=== PATIENT | male | born 1990 | race African-American/Black ===

== ENCOUNTER 2017-04-12 18:47 | Emergency (ER) | payer SELFPAY ==
[2017-04-12 19:16] VITALS: BP 132/78
[2017-04-12] MEDS ORDERED: PENICILLIN V POTASSIUM 500 MG TABLET PO ONE (20:57)
[2017-04-12] MEDS ORDERED: IBUPROFEN 800 MG TABLET PO ONE (20:57)
--- NOTE | 2017-04-12 20:58 | ER Document Report ---
HPI - HPI Pain Level: 4 Context: Patient is a 26-year-old male presents with left upper jaw pain for the past 2 days. Denies any fever, chills, difficulty swallowing, dyspnea, odor, foul drainage. Been able to tolerate both liquids and solids. Patient has delay in difficulty communicating - DERM Skin Color: Normal Past Medical History - Social History Smoking Status: Unknown if Ever Smoked Family History: Reviewed & Not Pertinent Renal/ Medical History: Denies: Hx Peritoneal Dialysis - Immunizations Hx Diphtheria, Pertussis, Tetanus Vaccination: No Vertical Provider Document - CONSTITUTIONAL Agree With Documented VS: Yes Exam Limitations: No Limitations General Appearance: WD/WN, No Apparent Distress, Other - Communication delay - HEENT HEENT: Atraumatic, Normal ENT Exam, Normocephalic Mouth Diagram: 1 - Pain to palpation with gingival inflammation and dental caries. No evidence of abscess Notes: Uvula midline. Airway patent. No evidence of tonsillar enlargement, peritonsillar abscess, retropharyngeal abscess. - NECK Neck: Normal Inspection, Other - No evidence of Eldon's angina. negative: Lymphadenopathy-Left, Lymphadenopathy-Right - RESPIRATORY Respiratory: Breath Sounds Normal, No Respiratory Distress, Chest Non-Tender O2 Sat by Pulse Oximetry: 99 - CARDIOVASCULAR Cardiovascular: Regular Rate, Regular Rhythm, No Murmur Pulses: Normal: Radial Course - Re-evaluation Re-evalutation: 04/13/17 07:02 Hemodynamic stable, no acute distress and afebrile. Patient prescribed penicillin and instructions to follow-up with dentist. Given strict return precautions. - Vital Signs Vital signs: Temp Pulse Resp BP Pulse Ox 98.4 F 97 16 132/78 H 99 04/12/17 19:12 04/12/17 19:12 04/12/17 19:12 04/12/17 19:12 04/12/17 19:12 Discharge - Discharge Clinical Impression: Tooth ache Condition: Good Disposition: HOME, SELF-CARE Instructions: [facility], Penicillin V K ([facility]), Toothache ([facility]), Use of Ecox-Xhe-Jbzvexw Ibuprofen ([facility]) Additional Instructions: [facility] [address] [place], [place] mornings, by appointment [facility] [address] [place] [address] [facility] [address] [facility] [address] [facility] [address] [email or web address] [address] [place] [address] Sunday- 8:00am to 5:00 pm Will see patients from other [facility]. Charges based on income and family size and accepts Medicare, Medicaid, and Insurances Will pull molars [facility] Student [facility] [id number] Hours of Operation 8:00 am - 4:30 pm weekdays The following dental offices accept Medicaid: [facility] Dr. Bowen Dr. Degroot Dr. Tim Dr. Hammonds Bryon Johnson [place], and [place] oral surgery Dr. Haq ([place]) Dr. Lopez ([place]) [facility] Drs. Werner and Erwin ([place]) Dr. Garcia ([place]) [facility] Dr. Allen ([place]) Drs. Napoles and ([place]) Medicaid Care Line Prescriptions: Penicillin V Potassium [Penicillin Vk 500 mg Tablet] 500 mg PO BID #20 tablet
== END 2017-04-12 21:01 | disposition home or self-care (01) ==
LOC: ER 18:47
DX: K08.9 Disorder of teeth and supporting structures, unspecified (principal); R68.84 Jaw pain
CPT/HCPCS: 99283

== ENCOUNTER 2017-05-18 11:45 | Emergency (ER) | payer SELFPAY ==
[2017-05-18 12:01] VITALS: BP 116/66
[2017-05-18 12:14] LABS: ABSOLUTE LYMPHOCYTES (AUTO) 1.5 10^3/uL (0.5-4.7); ABSOLUTE MONOCYTES (AUTO) 0.6 10^3/uL (0.1-1.4); ABSOLUTE NEUT (AUTO) 4.8 10^3/uL (1.7-8.2); BASOPHILS % (AUTO) 0.5 % (0-2); EOSINOPHILS % (AUTO) 0.2 % (0-6); HEMATOCRIT 37.9 % (37.9-51.0); HEMOGLOBIN 12.8 g/dL (13.5-17.0); HGB HCT DIFFERENCE 0.5; MEAN CORPUSCULAR HEMOGLOBIN 29.3 pg (27.0-33.4); MEAN CORPUSCULAR HGB CONC 33.7 g/dL (32.0-36.0); MEAN CORPUSCULAR VOLUME 87 fl (80-97); MONOCYTES % (AUTO) 8.2 % (3-13); RED BLOOD COUNT 4.35 10^6/uL (4.35-5.55); RED CELL DISTRIBUTION WIDTH 13.6 % (11.5-14.0); SEGMENTED NEUTROPHILS % (AUTO) 69.1 % (42-78)
[2017-05-18 12:27] LABS: ALANINE AMINOTRANSFERASE 34 U/L (21-72); ALBUMIN 4.2 g/dL (3.5-5.0); ALCOHOL 153 mg/dL (NONE DETECTED); ALKALINE PHOSPHATASE 67 U/L (38-126); ANION GAP 15 (5-19); ASPARTATE AMINO TRANSFERASE 38 U/L (17-59); BILIRUBIN,DIRECT 0.3 mg/dL (0.0-0.4); BILIRUBIN,TOTAL 0.4 mg/dL (0.2-1.3); BLOOD UREA NITROGEN 12 mg/dL (7-20); CALCIUM 8.4 mg/dL (8.4-10.2); CARBON DIOXIDE 20 mmol/L (22-30); CHLORIDE 106 mmol/L (98-107); GLUCOSE 84 mg/dL (75-110); POTASSIUM 3.7 mmol/L (3.6-5.0); SODIUM 141.1 mmol/L (137-145)
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
[2017-05-18 14:00] LABS: APPEARANCE,URINE CLEAR; BILIRUBIN,URINE NEGATIVE (NEGATIVE); GLUCOSE, URINE NEGATIVE (NEGATIVE); KETONES,URINE TRACE mg/dL (NEGATIVE); LEUKOCYTE ESTERASE,URINE NEGATIVE (NEGATIVE); NITRITE,URINE NEGATIVE (NEGATIVE); PROTEIN,URINE NEGATIVE (NEGATIVE); URINE SPECIFIC GRAVITY 1.012; UROBILINOGEN,URINE NEGATIVE mg/dL (<2.0)
[2017-05-18 14:20] LABS: URINE BARBITURATES SCREEN NEGATIVE; URINE METHADONE SCREEN NEGATIVE; URINE OPIATES LOW NEGATIVE; URINE PHENCYCLIDINE SCREEN NEGATIVE
== END 2017-05-18 14:45 | disposition home or self-care (01) ==
LOC: ER 11:45
DX: R41.82 Altered mental status, unspecified (principal); F14.10 Cocaine abuse, uncomplicated; F10.920 Alcohol use, unspecified with intoxication, uncomplicated; Z87.891 Personal history of nicotine dependence
CPT/HCPCS: 36415; 80053; 80307; 81001; 85025; 99284

== ENCOUNTER 2018-04-08 00:15 | Emergency (ER) | payer SELFPAY ==
[2018-04-08 01:17] LABS: ABSOLUTE BASOPHILS # (AUTO) 0.1 10^3/uL (0.0-0.2); ABSOLUTE EOSINOPHILS # (AUTO) 0.1 10^3/uL (0.0-0.6); ABSOLUTE LYMPHOCYTES (AUTO) 1.8 10^3/uL (0.5-4.7); ABSOLUTE MONOCYTES (AUTO) 0.5 10^3/uL (0.1-1.4); ABSOLUTE NEUT (AUTO) 1.9 10^3/uL (1.7-8.2); BASOPHILS % (AUTO) 1.2 % (0-2); EOSINOPHILS % (AUTO) 2.9 % (0-6); HEMATOCRIT 41.5 % (37.9-51.0); LYMPHOCYTES % (AUTO) 40.9 % (13-45); MEAN CORPUSCULAR HEMOGLOBIN 29.5 pg (27.0-33.4); MEAN CORPUSCULAR HGB CONC 33.8 g/dL (32.0-36.0); MEAN CORPUSCULAR VOLUME 87 fl (80-97); MONOCYTES % (AUTO) 11.5 % (3-13); PLATELET COUNT 217 10^3/uL (150-450); RED BLOOD COUNT 4.75 10^6/uL (4.35-5.55); RED CELL DISTRIBUTION WIDTH 13.7 % (11.5-14.0); SEGMENTED NEUTROPHILS % (AUTO) 43.5 % (42-78); TOTAL CELLS COUNTED % (AUTO) 100 %; WHITE BLOOD COUNT 4.4 10^3/uL (4.0-10.5)
[2018-04-08 01:21] LABS: ALANINE AMINOTRANSFERASE 33 U/L (21-72); ALBUMIN 4.2 g/dL (3.5-5.0); ALKALINE PHOSPHATASE 60 U/L (38-126); ANION GAP 11 (5-19); ASPARTATE AMINO TRANSFERASE 32 U/L (17-59); BILIRUBIN,DIRECT 0.3 mg/dL (0.0-0.4); BILIRUBIN,TOTAL 0.4 mg/dL (0.2-1.3); BLOOD UREA NITROGEN 14 mg/dL (7-20); CARBON DIOXIDE 26 mmol/L (22-30); CHLORIDE 109 mmol/L (98-107); GLUCOSE 167 mg/dL (75-110); POTASSIUM 4.1 mmol/L (3.6-5.0); SALICYLATE 7.5 mg/dL (2.0-20.0); SODIUM 145.5 mmol/L (137-145); TOTAL PROTEIN 6.9 g/dL (6.3-8.2)
[2018-04-08 01:26] LABS: ACETAMINOPHEN < 10 ug/mL (10-30); ALCOHOL < 10 mg/dL (NONE DETECTED)
--- NOTE | 2018-04-08 01:27 | ER Document Report ---
ED General - General Chief Complaint: Other Stated Complaint: BLOOD SUGAR PROBLEMS Time Seen by Provider: 04/08/18 00:25 Cannot obtain history due to: Mentally challenged Notes: Patient is a 27-year-old male who presents by EMS after apparently calling 911 from his cell phone. The patient is severely cognitively impaired, unable to tell me why he called 911 or if he has any acute medical concerns. He is asking for something to eat. Review of previous medical records demonstrates a history of similar previous presentations often the context of drug abuse. He does have a speech impairment and cognitive delay at baseline based on prior documentation. TRAVEL OUTSIDE OF THE [place] IN LAST 30 DAYS: No - Related Data Allergies/Adverse Reactions: No Known Allergies Allergy (Verified 04/08/18 00:50) Past Medical History - General Information source: Emergency Med Personnel, [facility] Records Cannot obtain history due to: Mentally challenged - Social History Smoking Status: Unknown if Ever Smoked Family History: Reviewed & Not Pertinent Patient has suicidal ideation: No Patient has homicidal ideation: No Renal/ Medical History: Denies: Hx Peritoneal Dialysis - Immunizations Hx Diphtheria, Pertussis, Tetanus Vaccination: No Review of Systems - Review of Systems -: Yes ROS unobtainable due to patient's medical condition Physical Exam - Vital signs Vitals: Temp Pulse Resp BP Pulse Ox 98.3 F 67 20 111/68 100 04/08/18 00:21 04/08/18 00:21 04/08/18 00:21 04/08/18 00:21 04/08/18 00:21 Interpretation: Normal Notes: PHYSICAL EXAMINATION: GENERAL: Well-appearing, well-nourished and in no acute distress. HEAD: Atraumatic, normocephalic. EYES: Pupils equal round and reactive to light, extraocular movements intact, sclera anicteric, conjunctiva are normal. ENT: nares patent, oropharynx clear without exudates. Moist mucous membranes. NECK: Normal range of motion, supple without lymphadenopathy LUNGS: Breath sounds clear to auscultation bilaterally and equal. No wheezes rales or rhonchi. HEART: Regular rate and rhythm without murmurs ABDOMEN: Soft, nontender, normoactive bowel sounds. No guarding, no rebound. No masses appreciated. EXTREMITIES: Normal range of motion, no pitting or edema. No cyanosis. NEUROLOGICAL: No focal neurological deficits. Moves all extremities spontaneously and on command. PSYCH: Significant cognitive delay. Pleasant on contact SKIN: Warm, Dry, normal turgor, no rashes or lesions noted. Course - Re-evaluation Re-evalutation: 04/08/18 01:26 Patient presents after apparently having called 911 but is unable to explain to me why he did so. He is otherwise apparently cognitively impaired which based on chart review is baseline. He does smell of alcohol. Prior charts document that he normally lives with his mother but often wanders the streets. Right now the patient does not seem to have the ability to be safely discharged but also does not appear to have any acute medical emergency. He is asking for something to eat. We will provide this. Will obtain standard psychiatric screening laboratories and try to get ahold of his mother. - Vital Signs Vital signs: Temp Pulse Resp BP Pulse Ox 98.3 F 67 20 111/68 100 04/08/18 00:21 04/08/18 00:21 04/08/18 00:21 04/08/18 00:21 04/08/18 00:21 - Laboratory Result Diagrams: 04/08/18 01:09 04/08/18 00:30 Laboratory results interpreted by me: 04/08/18 04/08/18 00:24 00:30 Sodium 145.5 H Chloride 109 H Glucose 167 H POC Glucose 164 H Acetaminophen < 10 L Discharge - Discharge Clinical Impression: Cognitive impairment Condition: Stable
[2018-04-08 03:56] LABS: APPEARANCE,URINE SLIGHTLY-CLOUDY; BILIRUBIN,URINE NEGATIVE (NEGATIVE); COLOR,URINE AMBER; GLUCOSE, URINE NEGATIVE (NEGATIVE); KETONES,URINE NEGATIVE (NEGATIVE); LEUKOCYTE ESTERASE,URINE NEGATIVE (NEGATIVE); NITRITE,URINE NEGATIVE (NEGATIVE); PROTEIN,URINE 30 mg/dL (NEGATIVE); URINE SPECIFIC GRAVITY 1.028
[2018-04-08 04:12] LABS: URINE AMPHETAMINES SCREEN NEGATIVE; URINE BARBITURATES SCREEN NEGATIVE; URINE BENZODIAZEPINES SCREEN NEGATIVE; URINE COCAINE SCREEN UNCONFIRMED POSITIVE; URINE MARIJUANA (THC) SCREEN UNCONFIRMED POSITIVE; URINE METHADONE SCREEN NEGATIVE; URINE PHENCYCLIDINE SCREEN NEGATIVE
--- NOTE | 2018-04-08 09:37 | ER Document Report ---
Doctor's Note Notes: 04/08/18 09:35 This is a follow-up evaluation: Primary diagnosis-substance abuse, cognitive function impaired, homeless. Patient is here for the above reason, has been doing well, currently has --- complaint. On examination-vitals reviewed in the chart. General exam: Alert oriented 3 not in any acute distress. Unhygienic HEENT: Normocephalic atraumatic pupils are equal reactive to light, Lungs-clear breath sounds no rales or wheezing. Cardiovascular system: Normal S1-S2 no murmurs. Gastrointestinal: Normal breath sounds, no organomegaly positive bowel sounds. Genitourinary: Skin: Could not exam Psychiatric: Diagnoses: Homeless, substance abuse Plan: Continue on the current plan
--- NOTE | 2018-04-08 11:26 | PSYCHOLOGICAL NOTE ---
Psych Note - Psych Note Psych Note: Reason for consult: AMS, history and current of polysubstance use Contact permissions: None but patient said could contact mother for history Patient is a 27 year old male who presented to the ED last evening via EMS and a psychiatric consult was ordered due to AMS. Patient stated he was in the ED because he called the Public Safety building saying he needed big assistance. When asked assistance with what or how the hospital could help him he said A Big Goodie Bag of food and rehabilitation for Cocaine. His UDS was positive for Cocaine and Cannabis. He stated his last use of Cocaine was yesterday at 1700, he uses it every few days and thinks it could be a problem. He denied being prescribed any medications except penicillin for tooth and gum issues. Observed patients teeth were rotted. Patient was alert and oriented to person, place, time and situation. Mood was euthymic with congruent affect. Note eyes were bloodshot and glossy. He denied current SI/HI and made no statements or gestures while in the ED. He did not appear to be responding to internal stimuli as evidenced by fair eye contact, staying on topic and answering questions appropriately. Thought processes were linear. Conversational speech was soft in tone, somewhat slurred and mumbled however it is felt this is normal for patient. Intellectual abilities are estimated to be below average. Insight, judgment and impulse control were fair as evidenced by trying to get basic needs met (food). Chart review indicated patient had been seen in the past (04/24/11, 05/18/17) for similar etiology. UDS were positive for Cocaine and Cannabis as well so likely ongoing moderate to severe use. Contacted patients mother/emergency contact, Rere Machadokinson ([phone] listed as home number was disconnected but [phone] listed as cell was in working order). She identified patient does not reside with her but does come around to shower and what not. She reported the last time she saw him was 2 weeks ago. She stated was diagnosed with Low IQ and ADHD by a professional Psychologist off [facility] by Christina (right at the light) which is how he was able to obtain disability. She reported he was prescribed Ritalin in the past. She stated patients chopping machine operator (Dr. Bella and Dr. Bee) prescribed the Ritalin. She stated she could not provide any transportation for patient because she no longer has a car. Contacted [facility] and made referral to Priscila at the call center who sent horizontal drill operatorcall center analyst Fiorella on site. Diagnosis: Polysubstaance use (current and by history) 304.30 (F12.20) Cannabis Use Disorder, Severe 304.20 (F14.20) Cannabis Use Disorder, Severe 319 (F79) Unspecified Intellectual Disability (Intellectual Developmental Disorder) by history per mother 314.01 (F90.9) Unspecified Attention Deficit Hyperactivity Disorder by history per mother Impression/Plan: Patient is cleared from acute psychiatric services. Linked to [facility] for voluntary Cocaine detox. Per Fiorella [facility] no available detox beds today. Patient then refused to allow [facility] to stay involved and continue seeking placement. He denied SI/HI and these were not presenting concerns. He has a history of polysubstance (per chart review, as well current UDS positive for Cocaine and Cannabis) and low IQ (per mother). Consulted with Dr. Daley regarding the management and care of patient. ED Physician in agreement with recommendations.
[2018-04-08 12:13] VITALS: BP 94/81
--- NOTE | 2018-04-08 16:38 | EKG REPORT ---
SEVERITY:- ABNORMAL ECG - SINUS RHYTHM ST ELEVATION SUGGESTS PERICARDITIS VS EARLY REPOLARIZATION CHANGES : Confirmed by: Alvin Nam 08-Apr-2018 16:36:54
== END 2018-04-08 12:20 | disposition home or self-care (01) ==
LOC: ER 00:15
DX: G31.84 Mild cognitive impairment of uncertain or unknown etiology (principal); F14.90 Cocaine use, unspecified, uncomplicated; F12.10 Cannabis abuse, uncomplicated
CPT/HCPCS: 36415; 80053; 80307; 81001; 82962; 85025; 93005; 93010; 99285

== ENCOUNTER 2018-05-02 01:57 | Emergency (ER) | payer SELFPAY ==
--- NOTE | 2018-05-02 03:04 | ER Document Report ---
ED General - General Chief Complaint: Chest Pain Stated Complaint: CHEST PAIN Time Seen by Provider: 05/02/18 02:50 Mode of Arrival: Medic Information source: Patient, Emergency Med Personnel, [facility] Records Cannot obtain history due to: Intoxicated Notes: 27 yr old male presents by ems for chest pain. on arrival pt noted to deny chest pain, admits he is homeless and wants snacks. pt denies any other concerns. TRAVEL OUTSIDE OF THE [place] IN LAST 30 DAYS: No - HPI Onset: Just prior to arrival Onset/Duration: Sudden Quality of pain: No pain Severity: None Pain Level: Denies Associated symptoms: Chest pain Exacerbated by: Denies Relieved by: Denies Similar symptoms previously: Yes Recently seen / treated by doctor: Yes - Related Data Allergies/Adverse Reactions: No Known Allergies Allergy (Verified 04/08/18 00:50) Past Medical History - Social History Smoking Status: Current Every Day Smoker Cigarette use (# per day): No Chew tobacco use (# tins/day): No Smoking Education Provided: No Family History: Reviewed & Not Pertinent Patient has suicidal ideation: - unable to obtain Patient has homicidal ideation: - unable to obtain Renal/ Medical History: Comment Only: Hx Peritoneal Dialysis - unable to obtain - Immunizations Hx Diphtheria, Pertussis, Tetanus Vaccination: No Review of Systems - Review of Systems Notes: REVIEW OF SYSTEMS: CONSTITUTIONAL : Denies fever, chills, or sweats. Denies recent illness. EENT: Denies eye, ear, throat, or mouth pain or symptoms. Denies nasal or sinus congestion or discharge. Denies throat, tongue, or mouth swelling or difficulty swallowing. CARDIOVASCULAR: admittd to chest pain . RESPIRATORY: Denies cough, cold, or chest congestion. Denies shortness of breath, difficulty breathing, or wheezing. GASTROINTESTINAL: Denies abdominal pain or distention. Denies nausea, vomiting , or diarrhea. Denies blood in vomitus, stools, or per rectum. Denies black, tarry stools. Denies constipation. GENITOURINARY: Denies difficulty urinating, painful urination, burning, frequency, blood in urine, or discharge. MUSCULOSKELETAL: Denies back or neck pain or stiffness. Denies joint pain or swelling. SKIN: Denies rash, lesions or sores. HEMATOLOGIC : Denies easy bruising or bleeding. LYMPHATIC: Denies swollen, enlarged glands. NEUROLOGICAL: Denies confusion or altered mental status. Denies passing out or loss of consciousness. Denies dizziness or lightheadedness. Denies headache. Denies weakness or paralysis or loss of use of either side. Denies problems with gait or speech. Denies sensory loss, numbness, or tingling. Denies seizures. PSYCHIATRIC: Denies anxiety or stress. Denies depression, suicidal ideation, or homicidal ideation. ALL OTHER SYSTEMS REVIEWED AND NEGATIVE. Dictation was performed using [employer] voice recognition software PHYSICAL EXAMINATION: GENERAL: Well-appearing, well-nourished and in no acute distress. HEAD: Atraumatic, normocephalic. EYES: pupils bilaterally injected ENT: Nares patent, oropharynx clear without exudates. Moist mucous membranes. NECK: Normal range of motion, supple without lymphadenopathy LUNGS: Breath sounds clear to auscultation bilaterally and equal. No wheezes rales or rhonchi. HEART: Regular rate and rhythm without murmurs ABDOMEN: Soft, nontender, nondistended abdomen. No guarding, no rebound. No masses appreciated. Musculoskeletal: Normal range of motion, no pitting or edema. No cyanosis. NEUROLOGICAL:mumbled speech PSYCH: bizarre affect SKIN: Warm, Dry, normal turgor, no rashes or lesions noted. Course - Re-evaluation Re-evalutation: 05/02/18 03:21 Patients presentation was initially for chest pain, but it appears that it is more substance abuse related. Discharge - Discharge Clinical Impression: Substance abuse Condition: Stable Disposition: PSYCH HOSP/UNIT
--- NOTE | 2018-05-02 03:22 | RADIOLOGY REPORT (SQ) ---
EXAM DESCRIPTION: XR CHEST 2 VIEWS COMPLETED DATE/TME: 05/02/2018 02:58 CLINICAL HISTORY: 27 years Male, chest pain COMPARISON: None. FINDINGS: Increased lung volume, clear parenchyma, normal cardiac silhouette, and intact bony thorax. IMPRESSION: No acute cardiopulmonary findings.
[2018-05-02 03:33] LABS: ABSOLUTE BASOPHILS # (AUTO) 0.1 10^3/uL (0.0-0.2); ABSOLUTE EOSINOPHILS # (AUTO) 0.1 10^3/uL (0.0-0.6); ABSOLUTE LYMPHOCYTES (AUTO) 1.8 10^3/uL (0.5-4.7); ABSOLUTE MONOCYTES (AUTO) 0.4 10^3/uL (0.1-1.4); ABSOLUTE NEUT (AUTO) 2.9 10^3/uL (1.7-8.2); BASOPHILS % (AUTO) 1.1 % (0-2); EOSINOPHILS % (AUTO) 1.2 % (0-6); HEMATOCRIT 38.4 % (37.9-51.0); HEMOGLOBIN 12.9 g/dL (13.5-17.0); LYMPHOCYTES % (AUTO) 34.8 % (13-45); MEAN CORPUSCULAR HEMOGLOBIN 29.1 pg (27.0-33.4); MEAN CORPUSCULAR HGB CONC 33.6 g/dL (32.0-36.0); MEAN CORPUSCULAR VOLUME 87 fl (80-97); MONOCYTES % (AUTO) 7.7 % (3-13); PLATELET COUNT 204 10^3/uL (150-450); RED BLOOD COUNT 4.43 10^6/uL (4.35-5.55); RED CELL DISTRIBUTION WIDTH 13.6 % (11.5-14.0); SEGMENTED NEUTROPHILS % (AUTO) 55.2 % (42-78); TOTAL CELLS COUNTED % (AUTO) 100 %; WHITE BLOOD COUNT 5.3 10^3/uL (4.0-10.5)
[2018-05-02 03:36] LABS: ACETAMINOPHEN < 10 ug/mL (10-30); ALANINE AMINOTRANSFERASE 20 U/L (21-72); ALBUMIN 3.8 g/dL (3.5-5.0); ALCOHOL 64 mg/dL (NONE DETECTED); ALKALINE PHOSPHATASE 47 U/L (38-126); ANION GAP 11 (5-19); ASPARTATE AMINO TRANSFERASE 21 U/L (17-59); BILIRUBIN,DIRECT 0.3 mg/dL (0.0-0.4); BILIRUBIN,TOTAL 0.3 mg/dL (0.2-1.3); BLOOD UREA NITROGEN 14 mg/dL (7-20); CALCIUM 9.2 mg/dL (8.4-10.2); CARBON DIOXIDE 27 mmol/L (22-30); CHLORIDE 106 mmol/L (98-107); GLUCOSE 83 mg/dL (75-110); SALICYLATE < 1.0 mg/dL (2.0-20.0); SODIUM 144.4 mmol/L (137-145); TOTAL PROTEIN 6.3 g/dL (6.3-8.2)
[2018-05-02 08:55] LABS: URINE AMPHETAMINES SCREEN NEGATIVE; URINE BARBITURATES SCREEN NEGATIVE; URINE BENZODIAZEPINES SCREEN NEGATIVE; URINE COCAINE SCREEN UNCONFIRMED POSITIVE; URINE MARIJUANA (THC) SCREEN UNCONFIRMED POSITIVE; URINE METHADONE SCREEN NEGATIVE; URINE PHENCYCLIDINE SCREEN NEGATIVE
[2018-05-02 09:19] LABS: APPEARANCE,URINE CLEAR; BILIRUBIN,URINE NEGATIVE (NEGATIVE); COLOR,URINE YELLOW; GLUCOSE, URINE NEGATIVE (NEGATIVE); KETONES,URINE NEGATIVE (NEGATIVE); LEUKOCYTE ESTERASE,URINE NEGATIVE (NEGATIVE); NITRITE,URINE NEGATIVE (NEGATIVE); PROTEIN,URINE NEGATIVE (NEGATIVE); URINE SPECIFIC GRAVITY 1.024; UROBILINOGEN,URINE NEGATIVE mg/dL (<2.0)
--- NOTE | 2018-05-02 09:37 | EKG REPORT ---
SEVERITY:- BORDERLINE ECG - SINUS RHYTHM PROBABLE LEFT ATRIAL ABNORMALITY BORDERLINE T ABNORMALITIES, ANT-LAT LEADS ST ELEV, PROBABLE NORMAL EARLY REPOL PATTERN : Confirmed by: Alvin Nam 02-May-2018 09:36:12
--- NOTE | 2018-05-02 09:39 | PSYCHOLOGICAL NOTE ---
Psych Note - Psych Note Psych Note: Reason for consult: substance abuse 27 yr old male presents by ems for chest pain. on arrival pt noted to deny chest pain, admits he is homeless and wants snacks. pt denies any other concerns. patient disclosed that he came to [facility] because of "minor chest pain." When asked why he felt he needed emergency services for minor chest pain, patient disclosed "well there was some sharp pain too." Patient was unable to verbalize where he lived initially but [place]. Patient denies suicidal ideation and homicidal ideation. Patient is alert and orientated to person, place, time and circumstance. Mood is euthymic with congruent affect. Patient is noted to have bloodshot eyes. Patient denies suicidal and homicidal ideation. Delusions are absent and behaviors congruent with an intact reality based presentation i.e. organized and linear thought process. Eye contact is fair. Conversational speech is very difficult to understand with mumbling and low tone. Intellectual abilities appear to be below average range. Attention and concentration are fair. Insight, judgment, impulse control are fair. Clinician attempted to contact patient's mother, Rere, ;left message. Patient was evaluated but the behavioral health team less than one month ago; collateral was obtained on 04/08/2018 Contacted patients mother/emergency contact, Rere Daugherty ([phone] listed as home number was disconnected but [phone] listed as cell was in working order). She identified patient does not reside with her but does come around to shower and what not. She reported the last time she saw him was 2 weeks ago. She stated was diagnosed with Low IQ and ADHD by a professional Psychologist off [facility] by [employer] (right at the light) which is how he was able to obtain disability. She reported he was prescribed Ritalin in the past. 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 Bella and Dr. Bee) prescribed the Ritalin. She stated she could not provide any transportation for patient because she no longer has a car. No medication recommendations at this time. Diagnosis: 304.30 (F12.20) Cannabis Use Disorder, Severe 204.20 (F14.20) Cocaine use disorder; Severe 319 (F79) Unspecified Intellectual Disability (Intellectual Developmental Disorder) by history per mother 314.01 (F90.9) Unspecified Attention Deficit Hyperactivity Disorder by history per mother Impression/Plan: Patient is cleared from acute psychiatric services. Patient does not meet IVC criteria per [place] GS 122C. It is unclear why the patient came to [facility] ED other that for a bed and food. Patient is noted to have possible IDD per his mother; however, the patient has been living in dependently on the [address] for a significant time. The patient was noted to have alcohol, marijuana and cocaine in his system, this is congruent with his past visits to [facility]. Patient was offered assistance with sobriety, he declined. Consulted with Dr. Daley regarding the management and care of patient. ED Physician in agreement with recommendations.
--- NOTE | 2018-05-02 09:41 | ER Document Report ---
Doctor's Note Notes: 05/02/18 09:40 Rounds: Chart reviewed and patient interviewed. Patient says he came in because he was having chest pains, but admits that he also wanted something to eat. He is homeless. Vital signs of all been normal. Lab studies showed alcohol of 64, drug screen positive for cocaine and marijuana, EKG normal except for what is likely early repolarization. Patient is not having any chest pain at this time. Chest x-ray was normal. Patient seems to be somewhat slow mentally, although he can tell me his first name and then tell me his last name and where he is located. Patient is able to ambulate without any difficulty. No evidence of any head injury. Patient appears to be medically stable for transfer or discharge. Demetra Torres MD
[2018-05-02 10:00] VITALS: BP 107/58
== END 2018-05-02 10:00 | disposition home or self-care (01) ==
LOC: ER 01:57
DX: F19.10 Other psychoactive substance abuse, uncomplicated (principal); R07.9 Chest pain, unspecified; Z59.0 Homelessness; F17.200 Nicotine dependence, unspecified, uncomplicated
CPT/HCPCS: 36415; 71046; 80053; 80307; 81001; 85025; 93005; 93010; 99285

== ENCOUNTER 2018-10-15 01:15 | Emergency (ER) | payer SELFPAY ==
--- NOTE | 2018-10-15 02:40 | ER Document Report ---
ED General - General Chief Complaint: Toothache Stated Complaint: TOOTHACHE, ALCOHOL PROBLEM Time Seen by Provider: 10/15/18 02:23 Notes: Patient is a 27-year-old male in the presents ER very intoxicated alcohol. His initial chief complaint is toothache. Patient is very intoxicated on exam. Initially I cannot get any history from him. Now he is more awake and alert and will answer some questions but is still intoxicated. He points to his right lower premolar as a source of pain. He denies any fevers or vomiting or difficulty breathing or difficulty swallowing. He says he drinks alcohol occasionally. He denies drinking alcohol daily. He has no other complaints at this time. TRAVEL OUTSIDE OF THE [place] IN LAST 30 DAYS: No - Related Data Allergies/Adverse Reactions: No Known Allergies Allergy (Verified 04/08/18 00:50) Past Medical History - Social History Smoking Status: Unknown if Ever Smoked Frequency of alcohol use: Occasional Drug Abuse: None Family History: Reviewed & Not Pertinent Renal/ Medical History: Comment Only: Hx Peritoneal Dialysis - unable to obtain - Immunizations Hx Diphtheria, Pertussis, Tetanus Vaccination: No Review of Systems - Review of Systems Notes: My Normal Review Basic REVIEW OF SYSTEMS: CONSTITUTIONAL : Denies fever, chills, or sweats. Denies recent illness. EENT: Tooth pain MUSCULOSKELETAL: Denies neck or back pain or joint pain or swelling. NEUROLOGICAL: Intoxicated with alcohol. Denies headache. Denies weakness or paralysis or loss of use of either side. Denies problems with gait or speech. Denies sensory or motor loss. ALL OTHER SYSTEMS REVIEWED AND NEGATIVE. Physical Exam - Vital signs Vitals: Temp Pulse Resp BP Pulse Ox 97 F L 85 16 123/79 97 10/15/18 01:21 10/15/18 01:21 10/15/18 01:21 10/15/18 01:21 10/15/18 01:21 - Notes Notes: General Appearance: Well nourished, alert, obese intoxicated with alcohol. Vitals: reviewed, See vital signs table. Head: no swelling or tenderness to the head Eyes: PERRL, EOMI, some conjunctival erythema bilaterally. Mouth: Patient has a fractured premolar tooth on the right lower side. No gingival swelling or erythema. Large amount of dental caries associated with this tooth. Throat: No tonsillar inflammation, No airway obstruction, No lymphadenopathy Neck: Supple, no neck tenderness, no step-offs or deformities. Lungs: No wheezing, No rales, No rhonci, No accessory muscle use, good air exchange bilaterally. Heart: Normal rate, Regular rythm, No murmur, no rub Abdomen: Normal BS, soft, No rigidity, No abdominal tenderness, No guarding, no rebound, no abdominal masses, no organomegaly Extremities: strength 5/5 in all extremities, good pulses in all extremities, no swelling or tenderness in the extremities, no edema. Skin: warm, dry, appropriate color, no rash Neuro: Patient garbled due to alcohol intoxication. Cranial nerves II through XII are intact. Patient able to move all extremities on his own however he is very off balance and able to stand and walk at this time. Course - Re-evaluation Re-evalutation: 10/15/18 02:39 Attempted to talk to the patient and evaluate his tooth. Asking questions he will shake his head yes or no but able to answer me verbally. He will open his eyes but then I am done talking to him he goes back to sleep. I asked him if he has tooth pain and he shakes his head yes. When asked what side he lifts his left hand but will not point inside his mouth. When I try to open his mouth to look he will not fully open his mouth and is not very cooperative. Although the patient tried to sober up a little bit more and then reassess. I do not see any signs of trauma or swelling or bruising to the patient's head or face. - Vital Signs Vital signs: Temp Pulse Resp BP Pulse Ox 98.5 F 74 18 108/64 99 10/15/18 07:56 10/15/18 07:56 10/15/18 07:56 10/15/18 07:56 10/15/18 07:56 Discharge - Discharge Clinical Impression: Toothache, Alcohol intoxication Condition: Good Disposition: HOME, SELF-CARE Additional Instructions: Please do not drink large amounts of alcohol.lease take the Penicilin as prescribed to help prevent further infection of your tooth. please followup with a dentist as soon as possible for treatment of your tooth.please return to the ER immediately if you develop facial swelling, difficulty breathing, difficulty swallowing, or feel unwell. Prescriptions: Penicillin V Potassium [Penicillin Vk 500 mg Tablet] 500 mg PO BID #14 tablet
[2018-10-15 07:57] VITALS: BP 108/64
== END 2018-10-15 08:47 | disposition home or self-care (01) ==
LOC: ER 01:15
DX: K02.9 Dental caries, unspecified (principal); K08.89 Other specified disorders of teeth and supporting structures; F10.129 Alcohol abuse with intoxication, unspecified
CPT/HCPCS: 99283